=== PATIENT | female | born 1990 | race Caucasian/White ===

== ENCOUNTER 2024-01-11 09:27 | Outpatient (OUT) | payer OTHER, SELFPAY ==
--- NOTE | 2024-01-11 09:46 | US_ITS ---
[address] [address] Patient Name: JUAN M BAILON MRN: [id number] date: 1990 Sex: F Assigned Patient Location: [facility] Current Patient Location: [facility] Accession/Order Number: [id number] Exam Date: 01/11/2024 10:19 Report Date: 01/11/2024 12:03 At the request of: LYNDON DRISCOLL Procedure: US OB transvaginal EXAMINATION: US OB transvaginal HISTORY: MISSED MENSES COMPARISON: No relevant comparison available. FINDINGS: Transvaginal images Kendrick intrauterine gestation Gestational sac: 2.72 cm, 7 weeks 4 days CRL: 1.76 cm, 8 weeks 2 days Yolk sac: Heart rate: 173 bpm Cervix: Closed, 3.7 cm Clinical age: 8 weeks 3 days Clinical ARTHUR: 08/19/2024 Ultrasound age: 8 weeks 2 days Ultrasound ARTHUR: 08/20/2024 US/US OB transvaginal IMPRESSION: Viable kendrick intrauterine gestation measuring 8 weeks 2 days Electronically authenticated by: ALTON MOROCHO Date: 01/11/2024 12:03
== END 2024-01-11 09:28 | disposition home or self-care (01) ==
LOC: NOMS 09:30
PROVIDERS: Visit Provider Obstetrics & Gynecology
DX: Z34.91 Encounter for supervision of normal pregnancy, unspecified, first trimester (principal); Z3A.08 8 weeks gestation of pregnancy; N92.6 Irregular menstruation, unspecified
CPT/HCPCS: 76817